=== PATIENT | male | born 1945 | race Caucasian/White ===

== ENCOUNTER → 2022-12-18 10:56 | Outpatient (BNVA) | payer OTHER, SELFPAY | PROVIDERS: Visit Provider Internal Medicine Cardiovascular Disease | DX: R07.9 Chest pain, unspecified (principal); R06.02 Shortness of breath | CPT/HCPCS: 93005 ==

== ENCOUNTER 2023-02-12 10:44 | Outpatient (CLI) | payer OTHER, SELFPAY ==
--- NOTE | 2023-02-12 11:15 | USCV_ITS ---
Kameron Morrissey Age: 77 Gender: M : 1945 Exam Date: 02/12/2023 11:13 Ordering Phys: Linda Michael MD ([email or web address]) Technologist: Thelma Franklin Exam Location: [facility] [place] Indication: Pre op clearance BP: / HR: 76 Rhythm: Sinus Technical Quality: Adequate MEASUREMENTS (Male / Female) Normal Values 2D ECHO LV Diastolic Diameter PLAX 3.6 cm 4.2 - 5.9 / 3.9 - 5.3 cm LV Systolic Diameter PLAX 3.1 cm LV Chamber Size 2.5 cm IVS Diastolic Thickness 1.2 cm 0.6 - 1.0 / 0.6 - 0.9 cm IVS Systolic Thickness 1.5 cm LVPW Diastolic Thickness 1.8 cm 0.6 - 1.0 / 0.6 - 0.9 cm LVPW Systolic Thickness 1.7 cm RV Chamber Size 2.6 cm LVOT Diameter 2.1 cm LV Ejection Fraction 2D Teich 21.4 % LV Ejection Fraction MOD 2C 34.1 % LV Ejection Fraction 2C AL 40.3 % LA Diameter 4.1 cm LA Width 3.1 cm LA Height 3.5 cm RA Width 3.0 cm RA Height 3.8 cm Aorta at Sinotubular Diameter 3.6 cm IVC Diameter 0.8 cm M-MODE Aortic Annulus Diameter 3.9 cm LA Ao Ratio MM 1.1 MV E Point Septal Separation 0.8 cm DOPPLER AV Peak Velocity 69.0 cm/s LVOT Peak Velocity 81.0 cm/s AV Area Cont Eq vti 3.8 cm squared AV Area Cont Eq pk 4.0 cm squared MV Area PHT 3.3 cm squared Mitral E to A Ratio 115.1 MV E' Velocity 51.5 cm/s Mitral E to MV E' Ratio 8.5 Mitral E to LV E' Lateral Ratio 8.0 Mitral E to LV E' Septal Ratio 9.1 TR Peak Velocity 198.0 cm/s TR Peak Gradient 15.7 mmHg TR Mean Velocity 118.5 cm/s TR Mean Gradient 7.0 mmHg TR Velocity Time Integral 40.6 cm TV Peak E Velocity 67.0 cm/s RV Acceleration Time 0.1 s RV Ejection Time 0.3 s RV AcT/ET 0.2 FINDINGS Left Ventricle Normal left ventricular size, systolic function and moderately increased wall thickness, with no regional wall motion abnormalities. Left ventricular ejection fraction is estimated at 60 %. Rhythm precludes evaluation of diastolic function. Right Ventricle Normal right ventricular size and systolic function. Right ventricular systolic pressure 21 mmHg. Right Atrium Normal right atrial size. Atrial septal aneurysm with left-to- right deviation. No ASD or PFO identified by color Doppler. Left Atrium Mildly increased left atrial size. Mitral Valve Mitral annular calcification. No mitral valve stenosis. Trace mitral valve regurgitation. Aortic Valve Mildly thickened trileaflet aortic valve. No aortic valve stenosis. No aortic valve regurgitation. Tricuspid Valve Structurally normal tricuspid valve. No tricuspid valve stenosis. Trace tricuspid valve regurgitation. Pulmonic Valve Structurally normal pulmonic valve. No pulmonary valve stenosis. Trace pulmonary valve regurgitation. Pericardium No pericardial effusion. Aorta Aortic root measured at 39 mm and ascending aorta measured at 32 mm. IVC Normal IVC dimension with >50% respiratory change of the inferior vena cava. CONCLUSIONS 1. Normal left ventricular size, systolic function and moderately increased wall thickness, with no regional wall motion abnormalities. Left ventricular ejection fraction is estimated at 60 %. 2. Atrial septal aneurysm with etho-hp-[id number] deviation. No ASD or PFO identified by color Doppler. 3. No Prior similar studies to compare. Linda Michael MD (Electronically Signed) Final Date: 26 February 2023 12:06 S
== END 2023-02-12 10:45 | disposition home or self-care (01) ==
PROVIDERS: PCP Internal Medicine Cardiovascular Disease; Visit Provider Internal Medicine Cardiovascular Disease
DX: R06.02 Shortness of breath (principal)
CPT/HCPCS: 93306

== ENCOUNTER → 2023-04-30 14:17 | Outpatient (BNVA) | payer OTHER, SELFPAY | PROVIDERS: PCP Internal Medicine Cardiovascular Disease; Visit Provider Physician Assistant | DX: S32.030A Wedge compression fracture of third lumbar vertebra, initial encounter for closed fracture; X58.XXXA Exposure to other specified factors, initial encounter; M47.816 Spondylosis without myelopathy or radiculopathy, lumbar region; M51.36 Other intervertebral disc degeneration, lumbar region; M51.37 Other intervertebral disc degeneration, lumbosacral region | CPT/HCPCS: 72100 ==

== ENCOUNTER 2023-05-14 11:46 | Outpatient (CLI) | payer OTHER, SELFPAY ==
--- NOTE | 2023-05-14 12:00 | USCV_ITS ---
Kameron Morrissey Age: 78 Gender: M : 1945 Exam Date: 05/14/2023 12:29 Ordering Phys: Bryan Alvarado MD (Andy) ([email or web address] [place], [place]) Technologist: CLAIRE Exam Location: [facility] [place] Indication: BLE PAIN Risk Factors: Previous Vascular Surgery: RIGHT LEFT BP: 123.0 / BP: 132.0/ 0 0 Waveform Velocity (cm/s) Velocity (cm/s) Waveform Triphasic 67.8 Iliac Prox 106.9 Triphasic Triphasic 66.6 Iliac Mid 141.7 Triphasic Triphasic 79.5 Iliac Distal 136.1 Triphasic Triphasic 65.8 HEEL VARNISHER 162.5 Triphasic Biphasic 46.7 SFA Prox 65.7 Biphasic Biphasic 53.2 SFA Mid 67.0 Biphasic Biphasic 53.9 SFA Dist 67.0 Biphasic Biphasic 55.2 POP 40.2 Biphasic N/A BLOCK HANDLER N/A Biphasic 67.0 DPA 52.6 N/A FINDINGS No flow seen in Bilat. BLOCK HANDLER. Unable to obtain KYM's due to non- compressible DPA. CA++ vessels see Moderate dense irregular plaques in the iliac and femoral arteries on the right side. There was no Doppler flow signals in the posterior tibial artery on the right side. The dorsalis pedis artery was noncompressible On the left side, moderate to heavy dense irregular plaques are noted in the iliac and femoral arteries. No Doppler flow signals were noted in the posterior tibial artery. The dorsalis pedis artery was noncompressible. CONCLUSIONS 1. Moderate to heavy dense irregular plaques in the left iliac and femoral arteries with a possibly occluded posterior tibial artery 2. Moderate dense irregular plaques in the right iliac and femoral arteries with possibly occluded posterior tibial artery. 3. Features of extensive arterial sclerosis Consider exercise KYM/TBI to further evaluate the functional significance of the stenosis, if clinically appropriate. No similar previous studies are available for comparison Dr Eileen Bond MD [facility] (Electronically Signed) Final Date: 14 May 2023 18:50 S
== END 2023-05-14 11:47 | disposition home or self-care (01) ==
LOC: RAD 11:46
PROVIDERS: PCP Internal Medicine Cardiovascular Disease; Visit Provider Thoracic Surgery (Cardiothoracic Vascular Surgery)
DX: I70.203 Unspecified atherosclerosis of native arteries of extremities, bilateral legs (principal)
CPT/HCPCS: 93925

== ENCOUNTER → 2023-06-18 12:56 | Outpatient (BNVA) | payer MEDICARE, SELFPAY | PROVIDERS: Visit Provider Nurse Practitioner Family | DX: I48.91 Unspecified atrial fibrillation (principal); Z95.0 Presence of cardiac pacemaker; F17.210 Nicotine dependence, cigarettes, uncomplicated; I12.9 Hypertensive chronic kidney disease with stage 1 through stage 4 chronic kidney disease, or unspecified chronic kidney disease; E11.22 Type 2 diabetes mellitus with diabetic chronic kidney disease; N18.9 Chronic kidney disease, unspecified; E11.51 Type 2 diabetes mellitus with diabetic peripheral angiopathy without gangrene; Z79.01 Long term (current) use of anticoagulants | CPT/HCPCS: 99214 ==

== ENCOUNTER → 2023-06-30 13:42 | Outpatient (BNVA) | payer MEDICARE, SELFPAY | PROVIDERS: Visit Provider Podiatrist Foot & Ankle Surgery | DX: B35.1 Tinea unguium (principal); I73.9 Peripheral vascular disease, unspecified; N18.9 Chronic kidney disease, unspecified; E11.29 Type 2 diabetes mellitus with other diabetic kidney complication; L84 Corns and callosities | CPT/HCPCS: 11056; 11721 ==

== ENCOUNTER 2023-07-07 15:50 | Outpatient (CLI) | payer MEDICARE, SELFPAY ==
--- NOTE | 2023-07-07 16:30 | CT_ITS ---
WS: [id number] CT LUMBAR SPINE TECHNIQUE: Noncontrast CT of the lumbar spine with coronal and sagittal reformatted images. CLINICAL INFORMATION: L3 FRACTURE COMPARISON: Radiograph 04/30/2023 DLP: 362.[address] scans at [facility] use at least one of these dose optimization techniques: automated e xposure control; mA and/or kV adjustment per patient size (includes targeted exams where dose is matc hed to clinical indication); or iterative reconstruction. FINDINGS: Again seen is the previously described comminuted burst type compression fracture L3 verteb ral body with biconcave compression. Loss of approximately 75% vertebral body height centrally. Mild retropulsion posterior superior cortex with moderate to severe central canal stenosis eccentric to th e RIGHT with impingement RIGHT subarticular recess. Partially visualized marked aneurysmal dilatation infrarenal abdominal aorta measuring approximately 6.7 x 4.6 cm with peripheral calcification. Outpouching in the LEFT lower abdominal aneurysm suspicio us for pseudoaneurysm formation. Discontinuity in the calcifications at this level. Recommend contras t-enhanced CTA abdomen/pelvis and vascular surgery consultation. Dense iliac calcification. Severe RI GHT common iliac artery stenosis at the origin. Aneurysmal RIGHT proximal common iliac artery. Sigmoid diverticulosis. Splenic artery calcification. LEFT renal cyst. L1-L2: Moderate facet arthropathy. Spinal canal and foramen are patent. L2-L3: Mild disc bulging with moderate central canal stenosis. Moderate facet arthropathy ligamentum flavum hypertrophy. Impingement subarticular recess bilaterally. Foramen are patent. L3-L4: Mild central canal stenosis with impingement on the LEFT subarticular recess and traversing LE FT L4 nerve root. Moderate facet arthropathy ligamentum flavum hypertrophy. Moderate LEFT and no sign ificant RIGHT foraminal narrowing. L4-L5: Mild annular bulging. Moderate facet arthropathy. Narrowing of the subarticular recess bilater ally. LEFT eccentric disc bulging with mild LEFT foraminal narrowing. L5-S1: Disc osteophyte complex with endplate ridging. Narrowing of the RIGHT subarticular recess. Mod erate RIGHT bony foraminal narrowing. Moderate facet arthropathy. Additional partially visualized fracture involving the distal sacrum eccentric to the RIGHT with elma ical step-off and mild displacement. This could be further evaluated with sacral CT. Ankylosis across the LEFT sacroiliac joint. IMPRESSION: 1. Markedly enlarged abdominal aortic aneurysm with a small developing LEFT eccentric lobulation or pseudoaneurysm. Recommend vascular surgery consultation and CTA abdomen pelvis. Patient at risk for r upture considering size 2. Burst type fracture L3 vertebral body with loss of approximately 75% vertebral body height centra lly. Mild retropulsion of the posterior superior cortex with impingement on the RIGHT subarticular re cess and moderate to severe central canal stenosis. 3. Mild central canal stenosis L3-4 with impingement on the LEFT subarticular recess. 4. Mild central canal stenosis L4-5. 5. Moderate RIGHT L5-S1 foraminal narrowing. 6. Additional partially visualized fracture involving fourth-fifth sacral segments on the RIGHT with cortical step-off. . This can be further evaluated with sacral CT. Discussed with Dr. Mccormick at 07/08/2023 2:14 PM.
== END 2023-07-07 15:51 | disposition home or self-care (01) ==
LOC: RAD 15:50
PROVIDERS: Visit Provider Nurse Practitioner Family
DX: S32.031A Stable burst fracture of third lumbar vertebra, initial encounter for closed fracture (principal); X58.XXXA Exposure to other specified factors, initial encounter; Y93.9 Activity, unspecified; Y92.9 Unspecified place or not applicable; Y99.9 Unspecified external cause status; M48.07 Spinal stenosis, lumbosacral region; M47.817 Spondylosis without myelopathy or radiculopathy, lumbosacral region; M54.6 Pain in thoracic spine; I71.40 Abdominal aortic aneurysm, without rupture, unspecified; M25.78 Osteophyte, vertebrae
CPT/HCPCS: 72131

== ENCOUNTER → 2023-08-24 08:43 | Outpatient (BNVA) | payer MEDICARE, SELFPAY | PROVIDERS: Referring Provider Nurse Practitioner Family; Visit Provider Thoracic Surgery (Cardiothoracic Vascular Surgery) | DX: I71.40 Abdominal aortic aneurysm, without rupture, unspecified (principal); F17.210 Nicotine dependence, cigarettes, uncomplicated | CPT/HCPCS: 99213 ==

== ENCOUNTER 2023-09-09 14:06 | Outpatient (CLI) | payer MEDICARE, SELFPAY ==
--- NOTE | 2023-09-09 14:22 | CT_ITS ---
WS: [id number] CT ANGIOGRAPHY CHEST, ABDOMEN AND PELVIS HISTORY: AAA, INFRARENAL ABDOMINAL AORTIC ANEURYSM, WITHOUT RUPTURE TECHNIQUE: CT angiogram is performed during IV injection. Reformation images reviewed. All CT scans a t [facility] use at least one of these dose optimization techniques: automated exposure contro l; mA and/or kV adjustment per patient size (includes targeted exams where dose is matched to clinica l indication); or iterative reconstruction. CONTRAST: Omnipaque 350; 100 mL IV. DLP: 1611.74 mGy.cm COMPARISON: CT lumbar spine 07/07/[address]: Good contrast injection of the thoracic aorta. Extensive calcified plaque throughout the th oracic aorta extending into the great vessels. No aneurysm. No dissection. Normal size pulmonary omar ry. Extensive coronary artery calcifications. Greatest distribution of calcification in the LEFT ante rior descending and RIGHT coronary artery. No pericardial or pleural effusions. Moderate paraseptal a nd centrilobular emphysema. No pulmonary nodule, mass or pneumonia. No mediastinal or hilar adenopath y. Abdominal/pelvis aorta: Large abdominal aortic aneurysm. Aneurysm begins at the level of the renal ar teries. There is a large amount of circumferential thrombus within the central aorta being opacified with contrast. Narrowing of the central lumen to 2.5 cm. Peripheral calcified plaque throughout the a neurysm. There is a focal LEFT lateral bulging of the wall of the aorta which extends beyond the calc ifications. There is crescentic thrombus within the aortic bulging. No active extravasation and this is probably a pseudoaneurysm with the prior rupture which is thrombosed. Maximum diameter of the aort a at the site of this bulging is 6.6 cm in diameter. Aneurysm tapers quickly to the bifurcation where there is heavy dense calcified plaque. Aneurysm extends over a length of 12.3 cm. Just proximal to t his large aneurysm is just slightly more prominent ectatic aorta. Heavy calcification in the splenic artery and SMA. Mild stenosis involving the origin of the celiac axis. Renal arteries are heavily tory cified. Negative liver and spleen. Negative gallbladder. Atrophic pancreas. There is no pancreatic duct dilat ation. The entire pancreas is atrophied. Bilateral adrenal hyperplasia. Cortical thinning and atrophy of each kidney with no obstruction. No solid mass. Exophytic 1.3 cm cyst lower pole LEFT kidney. No GI tract obstruction. Numerous diverticula in the sigmoid colon. No acute diverticulitis. No ascites or adenopathy. Very dense heavy calcified plaque beginning at the aortic bifurcation. Components of stenosis involvi ng the iliac arteries. Complete occlusion of the proximal RIGHT common iliac artery. Limited flow in the LEFT iliac artery. Multifocal areas of stenosis LEFT iliac artery to the femoral artery. 1.8 cm a neurysm LEFT femoral artery at the level of the femoral head. T11 compression fracture. This fracture may be new since 04/30/2023. Patient has also has a known add itional L3 burst fracture with retropulsion. These findings were described on 07/07/[address]23 CT. IMPRESSION: 1. Large juxtarenal abdominal aortic aneurysm extends over a length of 12.3 cm. Maximum transverse d iameter of 6.6 cm. Large amount of circumferential thrombus with a central enhancing lumen measuring 2.5 cm at its maximum. 2. There is a focal bulging of the LEFT lateral abdominal aorta with crescentic shaped thrombus. Dis c bulging extends beyond the calcification in the wall the aorta suggesting this is a partially conta ined pseudoaneurysm. There is no rupture at this time. 3. Severe atherosclerosis at the distal abdominal aorta extending into the iliac arteries. Complete occlusion proximal RIGHT common iliac artery. Multifocal areas of stenosis LEFT common iliac artery t o the femoral artery. Mild aneurysmal dilatation of the LEFT femoral artery to 1.8 cm. 4. Extensive atherosclerosis thoracic aorta extending into the great vessels. No aneurysm. 5. Extensive coronary artery calcification. 6. Severe emphysema. 7. T11 compression fracture appears new since 04/30/2023. 8. Patient has a known burst fracture at L3 described on 07/07/2023.
[2023-09-09 14:48] LABS: Blood Urea Nitrogen 15 mg/dL (8-23)
[2023-09-09] MEDS: iohexol 350 mg/mL 500 mL Btl (per mL) IV (15:02)
== END 2023-09-09 14:07 | disposition home or self-care (01) ==
LOC: RAD 14:07
PROVIDERS: Radiology Neuroradiology; Visit Provider Surgery Vascular Surgery
DX: I71.43 Infrarenal abdominal aortic aneurysm, without rupture (principal); I70.0 Atherosclerosis of aorta; I74.5 Embolism and thrombosis of iliac artery; I25.10 Atherosclerotic heart disease of native coronary artery without angina pectoris
CPT/HCPCS: 71275; 74174; 82565; 84520; Q9967

== ENCOUNTER → 2023-11-12 15:00 | Outpatient (BNVA) | payer MEDICARE, SELFPAY | PROVIDERS: Visit Provider Orthopaedic Surgery | DX: S32.040A Wedge compression fracture of fourth lumbar vertebra, initial encounter for closed fracture (principal); M54.9 Dorsalgia, unspecified; S32.030A Wedge compression fracture of third lumbar vertebra, initial encounter for closed fracture; X58.XXXA Exposure to other specified factors, initial encounter | CPT/HCPCS: 72100; 99214 ==

== ENCOUNTER → 2023-12-17 12:31 | Outpatient (BNVA) | payer MEDICARE, SELFPAY | PROVIDERS: Visit Provider Internal Medicine | DX: I71.40 Abdominal aortic aneurysm, without rupture, unspecified (principal); Z86.79 Personal history of other diseases of the circulatory system; I12.9 Hypertensive chronic kidney disease with stage 1 through stage 4 chronic kidney disease, or unspecified chronic kidney disease; E11.22 Type 2 diabetes mellitus with diabetic chronic kidney disease; N18.9 Chronic kidney disease, unspecified; Z95.0 Presence of cardiac pacemaker; E03.9 Hypothyroidism, unspecified; Z72.0 Tobacco use | CPT/HCPCS: 99214 ==